=== PATIENT | female | born 1995 | race Two or more races ===

== ENCOUNTER 2024-07-30 08:20 | Inpatient (IN) | payer OTHER ==
[2024-07-30] MEDS: LACTATED RINGERS SOLUTION 1,000 ML IV ONE (08:45)
[2024-07-30] MEDS: CITRIC ACID/SODIUM CITRATE 30 ML UNIT-DOSE CUP PO ONE (09:30)
[2024-07-30 09:45] VITALS: BMI 34.3
[2024-07-30] MEDS: LACTATED RINGERS SOLUTION 1,000 ML IV SCH (09:45)
[2024-07-30] MEDS ORDERED: morphine SULFATE/PF 1 MG/2 ML (2cc Syringe - QUVA) ONE (10:40)
[2024-07-30] MEDS ORDERED: FENTANYL CITRATE/PF 50 MCG/ML VIAL ONE (10:40)
[2024-07-30] MEDS ORDERED: ONDANSETRON 4 MG/2 ML VIAL ONE (10:54)
[2024-07-30] MEDS ORDERED: ceFAZolin SODIUM 1 GM VIAL ONE (10:58)
[2024-07-30] MEDS ORDERED: OXYTOCIN 10 UNITS/ML VIAL ONE (11:16)
[2024-07-30] MEDS ORDERED: KETAMINE HCL 200 MG/20 ML VIAL ONE (11:26)
[2024-07-30] MEDS ORDERED: MIDAZOLAM HCL 2 MG/2 ML SINGLE DOSE VIAL ONE (11:27)
[2024-07-30] MEDS ORDERED: OXYTOCIN 20 UNITS in 0.9% NS 20 UNIT/1,000 ML INFUS.BAG IV ONE (11:55)
[2024-07-30 12:21] LABS: SYPHILIS W/ RPR CONF NON-REACTIVE (NONREACTIVE)
[2024-07-30] MEDS: ELECTROLYTE-148 SOLN 1,000 ML IV SCH (12:33)
[2024-07-30] MEDS: ELECTROLYTE-148 SOLN 500 ML IV ONE (12:33)
[2024-07-30] MEDS: IBUPROFEN 800 MG/8 ML IJ IVPB PRN (15:52)
[2024-07-30] MEDS: OXYTOCIN 20 UNITS in 0.9% NS 20 UNIT/1,000 ML INFUS.BAG IV SCH (15:56)
[2024-07-30] MEDS ORDERED: ONDANSETRON 4 MG/2 ML VIAL IVPUSH PRN (18:10)
[2024-07-30] MEDS: SIMETHICONE 80 MG TAB.CHEW (FP) PO PRN (21:30)
[2024-07-31 07:31] LABS: BASO % 0.4 % (0-2.0); EOS % 0.2 % (0-4.5); HEMATOCRIT 25.5 % (32.4-45.2); HEMOGLOBIN 7.7 GM/dL (10.7-15.3); LYMPH % 15.3 % (8-40); MCHC 30.3 g/dl (32.0-36.0); MEAN CELL VOLUME 66.1 fl (80-96); MEAN PLT VOLUME 9.7 fl (7.5-11.1); MONO % 4.5 % (3.8-10.2); NEUT % 79.6 % (42.8-82.8); PLATELET COUNT 219 10^3/uL (134-434); RBC 3.85 M/mm3 (3.60-5.2); RDW 16.7 % (11.6-15.6); WHITE BLOOD COUNT 6.1 K/mm3 (4.0-10.0)
[2024-07-31] MEDS: oxyCODONE HCL 5 MG TABLET PO PRN (08:37)
[2024-07-31] MEDS: IBUPROFEN 600 MG TABLET (FP) PO PRN (09:25)
[2024-07-31] MEDS ORDERED: BISACODYL 10 MG SUPP.RECT RC PRN (14:15)
[2024-07-31] MEDS: ACETAMINOPHEN 325 MG TABLET (FP) PO PRN (18:38)
[2024-07-31 21:56] VITALS: RESP 18
[2024-08-02 06:54] LABS: BASO % 0.3 % (0-2.0); EOS % 1.6 % (0-4.5); HEMATOCRIT 24.7 % (32.4-45.2); HEMOGLOBIN 7.7 GM/dL (10.7-15.3); LYMPH % 37.7 % (8-40); MCH 20.5 pg (25.7-33.7); MCHC 31.1 g/dl (32.0-36.0); MEAN CELL VOLUME 65.9 fl (80-96); MEAN PLT VOLUME 9.7 fl (7.5-11.1); NEUT % 55.4 % (42.8-82.8); PLATELET COUNT 239 10^3/uL (134-434); RBC 3.75 M/mm3 (3.60-5.2); RDW 16.7 % (11.6-15.6); WHITE BLOOD COUNT 6.2 K/mm3 (4.0-10.0)
[2024-08-02 08:33] LABS: ANISOCYTOSIS 2+; MACROCYTOSIS 1+
[2024-08-02] MEDS: IRON SUCROSE INJECTION 200 MG in SODIUM CHLORIDE 100 ML IVPB ONE (09:15)
[2024-08-02 15:23] VITALS: TEMP 98.4
[2024-08-02 23:06] VITALS: BP 96/60; PULSE 62
== END 2024-08-03 12:54 | disposition home or self-care (01) | DRG 540 ==
LOC: JLDR 08:20 → J3W 14:10
PROVIDERS: ADMIT Student in an Organized Health Care Education/Training Program; ATTEND Student in an Organized Health Care Education/Training Program
PROC: 10D00Z1 Extraction of Products of Conception, Low, Open Approach (ICD-10-PCS; principal; 2024-07-30)
DX: O34.211 Maternal care for low transverse scar from previous cesarean delivery (principal); Z3A.40 40 weeks gestation of pregnancy; Z37.0 Single live birth; O99.02 Anemia complicating childbirth; D64.9 Anemia, unspecified
CPT/HCPCS: 36415; 59409; 85025; 86780; 86803; 86922; 88307-TC; 94010; J1756